=== PATIENT | female | born 1990 | race Caucasian/White ===

== ENCOUNTER 2025-06-18 18:23 | Emergency (ER) | payer BC ==
[2025-06-18] MEDS ORDERED: KETOROLAC 30 MG/ML INJ ONE (19:25)
[2025-06-18] MEDS ORDERED: ONDANSETRON 4 MG/2 ML VIAL ONE (19:25)
[2025-06-18] MEDS ORDERED: NA CHLORIDE 0.9% 1,000 ML ONE (19:25)
[2025-06-18 19:28] LABS: Absolute Lymphocytes (CBC) 1.9 K/uL (0.7-4.9); Hematocrit 39.2 % (36.0-45.0); Hemoglobin 13.3 g/dL (12.0-15.0); MCH 31.0 pg (27.0-35.0); MCHC 34.0 g/dL (32.0-36.0); MCV 91.4 fL (80-100); MPV 7.2 fL (7.6-11.3); Nucleated RBC Absolute Count 0.0 (0-0); Nucleated Red Blood Cells % 0.0 % (0-0); RBC Red Blood Cell Count 4.29 M/uL (3.86-4.86); White Blood Count 6.70 thou/uL (4.3-10.9)
[2025-06-18 19:32] LABS: Sqamous Epithelial <5 /HPF (None Seen); Urine Culture Reflex Order NOT NEEDED; Urine Microscopic Reflex YN ORDER UMIC
[2025-06-18 19:47] LABS: ALT/SGPT 17 U/L (13-56); Albumin 3.9 g/dL (3.4-5.0); Albumin/Globulin Ratio 1.1 (1.1-1.8); Alkaline Phosphatase 46 U/L (45-117); Anion Gap 7.5 mEq/L (5.0-15.0); BUN Blood Urea Nitrogen 14 mg/dL (7-18); Globulin 3.4 g/dL (2.3-3.5); Glucose Level 93 mg/dL (74-106); Lipase 10 U/L (13-75); Potassium 3.5 mEq/L (3.5-5.1)
[2025-06-18 20:02] LABS: AST/SGOT < 10 U/L (15-37)
--- NOTE | 2025-06-18 21:15 | RAD REPORT ---
EXAMINATION: CT Abdomen Pelvis W Contrast CLINICAL INDICATION: Female, 35 years old. ABD PAIN TECHNIQUE: CT abdomen and pelvis was performed, after the administration of IV contrast, as per [facility] protocol. Axial, sagittal and coronal reconstructions were obtained. One or more of the following dose reduction techniques were used: Automated exposure control, adjustment of the mA and k V according to patient size, and iterative reconstruction. Unless otherwise specified, incidental findings do not require dedicated imaging follow-up. COMPARISON: No prior exam. FINDINGS: LOWER CHEST: The visualized lung bases are clear. LIVER: Normal in size and contour. No focal lesion. BILIARY SYSTEM: No suspicious abnormalities. SPLEEN: Normal size. No focal lesion. PANCREAS: No mass, ductal dilation, or dewayne-pancreatic fluid. ADRENALS: Normal; no mass. KIDNEYS: Normal size and contour. No hydronephrosis. URINARY BLADDER: Unremarkable. GASTROINTESTINAL TRACT: No evidence of free air, bowel obstruction or abscess. Trace pelvic free flu id, likely physiologic. APPENDIX: Normal appendix. LYMPH NODES: No lymphadenopathy. MUSCULOSKELETAL: No acute or suspicious osseous abnormality. ADDITIONAL FINDINGS: Retroverted uterus. IMPRESSION: No acute or concerning abnormalities seen in the abdomen or pelvis. Findings as above.
--- NOTE | 2025-06-18 22:19 | RAD REPORT ---
EXAMINATION: US Transvaginal Study Probe CLINICAL INDICATION: Female 35 years old.[facility] MAIN 2024 ABD PAIN Bed Name: 11 TECHNIQUE: Real-time ultrasonography of the pelvis was performed transvaginally. Color and spectral D oppler evaluation of the ovaries was performed. COMPARISON: No prior exam. FINDINGS: UTERUS AND CERVIX: The uterus is retroverted, measures 6.9 cm in length. The myometrium is normal. No masses seen The endometrium is within normal limits for age, measuring 1.2 cm in thickness. RIGHT OVARY: Normal The right ovary measures 2.8 x 1.5 x 1.9 cm. Normal color and spectral Doppler evaluation of the right ovary.. LEFT OVARY: Normal The left ovary measures 2.7 x 1.2 x 1.4 cm. Normal color and spectral Doppler evaluation of the left ovary.. FREE FLUID: No free fluid. IMPRESSION: Retroverted uterus. Prominent endometrial thickness up to 1.2 cm, within normal limits for premenopausal state, please co rrelate with menstrual phase.
--- NOTE | 2025-06-18 22:28 | EDPHYS ---
Physician Documentation [facility] Name: Carmina Short Age: 35 yrs Sex: Female : 1990 Arrival Date: 06/18/2025 Time: 18:23 Bed 11 Private MD: CHATO Physician Elian Philippe HPI: 06/18 22:00 This 35 yrs old Female presents to ER via Ambulatory with complaints of Abdominal Pain kb - LLQ, Back Pain - LOWER, Fatigue, Nausea/Vomiting. 22:00 Pt is a 35 year old female who presents for left sided abd pain, nausea and vomiting kb that started 2 weeks ago and has been intermittent. States it feels similar to when she had an ovarian cyst last year. Denies vaginal bleeding, urinary symptoms, diarrhea, urinary symptoms. Historical: - Allergies: 19:02 No Known Allergies; ll1 - PMHx: 19:02 Hypothyroidism; IBS; ovarian cyst; ll1 - PSHx: 19:02 dental work; ll1 - Immunization history:: Adult Immunizations up to date. - Social history:: Smoking status: Patient denies any tobacco usage or history of. ROS: 21:59 Constitutional: As per HPI kb Exam: 21:59 Constitutional: This is a well developed, well nourished patient who is awake, alert, kb and in no acute distress. Head/Face: Normocephalic, atraumatic. ENT: Moist Mucous membranes Cardiovascular: Regular rate Respiratory: Respirations even and unlabored. No increased work of breathing. Talking in full sentences Skin: Warm, dry with normal turgor. Normal color. MS/ Extremity: Pulses equal, no cyanosis. Neurovascular intact. Full, normal range of motion. Neuro: Awake and alert, GCS 15, oriented to person, place, time, and situation. 21:59 Abdomen/GI: Inspection: abdomen appears normal, Bowel sounds: normal, Palpation: soft, in all quadrants, mild abdominal tenderness, in the left upper quadrant and left lower quadrant, Vital Signs: 19:01 BP 139 / 93; Pulse 88; Resp 17; Temp 98.2; Pulse Ox 100% ; Weight 65.77 kg; Height 5 ll1 ft. 4 in. ; Pain 7/10; 21:01 BP 107 / 61; Pulse 68; Resp 16; Pulse Ox 100% on R/A; jb4 19:01 Body Mass Index 24.89 (65.77 kg, 162.56 cm) ll1 19:01 Pain Scale: Adult ll1 MDM: 18:33 Medical Screening Exam initiated kb 22:26 Differential diagnosis: urinary tract infection, ovarian cyst, diverticulitis. Data kb reviewed: vital signs, nurses notes. I considered the following discharge prescriptions or medication management in the emergency department I discussed and recommended Over The Counter medications, Antibiotics: At this time antibiotics are not recommended, will prescribe zofran PRN nausea. Counseling: I had a detailed discussion with the patient and/or guardian regarding the historical points, exam findings, and any diagnostic results supporting the discharge/admit diagnosis, lab results, radiology results, the need for outpatient follow up, a chairman of the board, an OB/Gyne specialist, to return to the emergency department if symptoms worsen or persist or if there are any questions or concerns that arise at home. 06/18 18:52 Order name: UA Rfx Cody Cult if indicated; Complete Time: 19:32 kb 06/18 18:52 Order name: Test, Urine; Complete Time: 19:31 kb 06/18 18:52 Order name: CBC with Diff; Complete Time: 19:31 kb 06/18 18:52 Order name: CMP; Complete Time: 20:05 kb 06/18 18:52 Order name: Lipase; Complete Time: 20:05 kb 06/18 18:52 Order name: CT Abd/Pelvis - IV Contrast Only; Complete Time: 21:22 kb 06/18 21:40 Order name: US Transvaginal Study (Probe); Complete Time: 22:23 kb 06/18 18:52 Order name: IV Saline Lock; Complete Time: 19:32 kb 06/18 18:52 Order name: Labs collected and sent; Complete Time: 19:32 kb Administered Medications: 19:31 Drug: Ondansetron IVP 4 mg IVP once; over 2 minutes Route: IVP; Site: right antecubital;jb4 20:00 Follow up: Response: No adverse reaction; Marked relief of symptoms jb4 19:32 Drug: TORadol - Ketorolac IVP 15 mg IVP once Route: IVP; Site: right antecubital; jb4 20:00 Follow up: Response: No adverse reaction; Marked relief of symptoms; Pain is decreased jb4 19:32 Drug: NS 0.9% IV 1000 ml IV at 1 bolus Per protocol; to be given as a bolus over 60 jb4 minutes Route: IV; Rate: 1 bolus; Site: right antecubital; 20:35 Follow up: Response: No adverse reaction; IV Status: Completed infusion; IV Intake: jb4 1000ml Disposition Summary: 06/18/25 22:27 Discharge Ordered Notes: Location: Home kb Condition: Stable kb Diagnosis - Abdominal pain, unspecified kb Followup: kb - With: Emergency Department - When: As needed - Reason: Worsening of condition Followup: kb - With: Private Physician - When: 2 - 3 days - Reason: Recheck today's complaints, Continuance of care, Re-evaluation by your physician Discharge Instructions: - Discharge Summary Sheet kb - Abdominal Pain, Adult, [id number] kb Forms: - Medication Reconciliation Form kb - Antibiotic Education kb - Prescription Opioid Use kb - Patient Portal Instructions kb - Leadership Thank You Letter kb Prescriptions: - Zofran 4 mg Oral tablet - take 1 tablet ORAL route every 6 hours As needed; 12 tablet; Refills: 0, kb Product Selection Permitted - Diclofenac Sodium 75 mg Oral tablet, delayed release (enteric coated) - take 1 tablet ORAL route 2 times per day As needed; 30 tablet; Refills: 0, kb Product Selection Permitted Signatures: Dispatcher [employer] Debora Cole, [employer] S[employer]ER-C [employer] S[employer]ICER-Jayson Casarez, RN RN jb4 Alen Gilmore RN RN ll1 Corrections: (The following items were deleted from the chart) 18:52 18:52 UA Rfx Cody Cult if indicated+U.LAB.BRZ ordered. EDMS EDMS 18:52 18:52 Test, Urine+UC.LAB.BRZ ordered. EDMS EDMS 18:52 18:52 CBC+H.LAB.BRZ ordered. EDMS EDMS 18:52 18:52 COMPREHENSIVE METABOLIC PANEL+C.LAB.BRZ ordered. EDMS EDMS 18:52 18:52 LIPASE+C.LAB.BRZ ordered. EDMS EDMS 18:52 18:52 Abdomen Pelvis W Con+CT.RAD.BRZ ordered. EDMS EDMS
--- NOTE | 2025-06-18 22:28 | ER ---
Nurse's Notes [facility] Name: Carmina Short Age: 35 yrs Sex: Female : 1990 Arrival Date: 06/18/2025 Time: 18:23 Bed 11 Private MD: Diagnosis: Abdominal pain, unspecified Presentation: 06/18 19:01 Chief complaint: Patient states: LLQ abdominal pain, N/V, low back pain, fatigue, very ll1 thirsty for 2 weeks off/on. Coronavirus screen: Client denies travel out of the [place] in the last 14 days. At this time, the client does not indicate any symptoms associated with coronavirus-19. Ebola Screen: Patient denies travel to an Ebola-affected area in the 21 days before illness onset. Initial Sepsis Screen: Does the patient meet any 2 criteria? No. Patient's initial sepsis screen is negative. Does the patient have a suspected source of infection? No. Patient's initial sepsis screen is negative. Risk Assessment: Do you want to hurt yourself or someone else? Patient reports no desire to harm self or others. Onset of symptoms was June 03, 2025. 19:01 Method Of Arrival: Ambulatory ll1 19:01 Acuity: RYAN 3 ll1 Triage Assessment: 19:01 General: Appears uncomfortable, Behavior is calm, cooperative, appropriate for age. ll1 General: Reports fatigue for. Pain: Complains of pain in abdomen. Neuro: Reports weakness. GI: Reports lower abdominal pain, nausea, vomiting. Historical: - Allergies: 19:02 No Known Allergies; ll1 - PMHx: 19:02 Hypothyroidism; IBS; ovarian cyst; ll1 - PSHx: 19:02 dental work; ll1 - Immunization history:: Adult Immunizations up to date. - Social history:: Smoking status: Patient denies any tobacco usage or history of. Screenin:34 [facility] ED Fall Risk Assessment (Adult) History of falling in the last 3 months, jb4 including since admission No falls in past 3 months (0 pts) Confusion or Disorientation No (0 pts) Intoxicated or Sedated No (0 pts) Impaired Gait No (0 pts) Mobility Assist Device Used No (0 pt) Altered Elimination No (0 pt) Score/Fall Risk Level 0 - 2 = Low Risk Oriented to surroundings, Maintained a safe environment. Abuse screen: Denies threats or abuse. Nutritional screening: No deficits noted. Tuberculosis screening: No symptoms or risk factors identified. Assessment: 19:59 Reassessment: Patient appears in no apparent distress at this time. Patient and/or jb4 family updated on plan of care and expected duration. Pain level reassessed. Patient is alert, oriented x 3, equal unlabored respirations, skin warm/dry/pink. 21:01 Reassessment: Patient appears in no apparent distress at this time. Patient and/or jb4 family updated on plan of care and expected duration. Pain level reassessed. Patient is alert, oriented x 3, equal unlabored respirations, skin warm/dry/pink. Patient states feeling better. Patient states symptoms have improved. 22:34 Reassessment: Patient appears in no apparent distress at this time. Patient and/or jb4 family updated on plan of care and expected duration. Pain level reassessed. Patient is alert, oriented x 3, equal unlabored respirations, skin warm/dry/pink. Vital Signs: 19:01 BP 139 / 93; Pulse 88; Resp 17; Temp 98.2; Pulse Ox 100% ; Weight 65.77 kg; Height 5 ll1 ft. 4 in. ; Pain 7/10; 21:01 BP 107 / 61; Pulse 68; Resp 16; Pulse Ox 100% on R/A; jb4 19:01 Body Mass Index 24.89 (65.77 kg, 162.56 cm) ll1 19:01 Pain Scale: Adult ll1 ED Course: 18:29 Patient arrived in ED. cj3 18:33 [facility]C [facility] kb 18:33 Elian Philippe is Attending Physician. kb 19:02 Triage completed. ll1 19:03 Arm band placed on. ll1 19:32 Lipase Sent. jb4 19:59 Jayson Moncada, RN is Primary Nurse. jb4 20:25 CT Abd/Pelvis - IV Contrast Only In Process Unspecified. EDMS 22:02 US Transvaginal Study (Probe) In Process Unspecified. EDMS 22:34 Patient has correct armband on for positive identification. Bed in low position. Call jb4 light in reach. Side rails up X 1. Provided Education on: discharge instructions.. 22:34 No provider procedures requiring assistance completed. IV discontinued, intact, jb4 bleeding controlled, No redness/swelling at site. Pressure dressing applied. Administered Medications: 19:31 Drug: Ondansetron IVP 4 mg IVP once; over 2 minutes Route: IVP; Site: right antecubital;jb4 20:00 Follow up: Response: No adverse reaction; Marked relief of symptoms jb4 19:32 Drug: TORadol - Ketorolac IVP 15 mg IVP once Route: IVP; Site: right antecubital; jb4 20:00 Follow up: Response: No adverse reaction; Marked relief of symptoms; Pain is decreased jb4 19:32 Drug: NS 0.9% IV 1000 ml IV at 1 bolus Per protocol; to be given as a bolus over 60 jb4 minutes Route: IV; Rate: 1 bolus; Site: right antecubital; 20:35 Follow up: Response: No adverse reaction; IV Status: Completed infusion; IV Intake: jb4 1000ml Medication: 22:34 VIS not applicable for this client. jb4 Intake: 20:35 IV: 1000ml; Total: 1000ml. jb4 Outcome: 22:27 Discharge ordered by . ramón 22:34 Discharged to home ambulatory, jb4 22:34 Condition: stable 22:34 Discharge instructions given to patient, Instructed on discharge instructions, follow up and referral plans. no drinking with medication, medication usage, Demonstrated understanding of instructions, follow-up care, medications, Prescriptions given X 2, 22:36 Patient left the ED. jb4 Signatures: Dispatcher [employer] EDMS Debora Alvarez, ALLISON MILTON-Jayson Casarez RN RN jb4 Alen Gilmore RN RN ll1 Suzy Quan 3
[2025-06-18 23:40] VITALS: TEMP 98.2; O2SAT 100
[2025-06-18 23:41] VITALS: BP 107/61
== END 2025-06-18 22:36 | disposition home or self-care (01) ==
LOC: ER 18:23
DX: R10.32 Left lower quadrant pain (principal); R11.2 Nausea with vomiting, unspecified
CPT/HCPCS: 96361; 85025; 81001; 36415; 81025; 83690; 80053; 74177; 76830; 96375; 96374; 99284; Q9967; J2405; J7030